=== PATIENT | male | born 1960 | race Caucasian/White ===

== ENCOUNTER 2018-08-03 13:46 | Inpatient (IN) | payer OTHER ==
[~2018-08-03] VITALS: Ht 193 cm; Wt 109.4 kg
[2018-08-03] MEDS ORDERED: ASPIRIN (EC) 81 MG TAB PO ONE (15:30)
[2018-08-03] MEDS ORDERED: SOD CHLORIDE 0.9% 100 ML ONE (15:43)
[2018-08-03] MEDS ORDERED: IOHEXOL 100 ML ONE (15:43)
[2018-08-03] MEDS ORDERED: GABA300C16 PO (16:04)
[2018-08-03] MEDS ORDERED: GABA-526 PO (16:04)
[2018-08-03] MEDS ORDERED: LEVE100018 PO (16:04)
[2018-08-03] MEDS ORDERED: METO-319 PO (16:05)
[2018-08-03] MEDS ORDERED: AMLO5TAB4 PO (16:05)
[2018-08-03] MEDS ORDERED: LTH150C PO (16:06)
[2018-08-03] MEDS ORDERED: ONDANSETRON 4 MG INJ IV PRN ×2 (16:30→17:00)
[2018-08-03] MEDS ORDERED: ACETAMINOPHEN 325 MG TAB PO PRN ×2 (16:30→17:00)
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
[2018-08-03] MEDS: traMADol 50 MG TAB PO PRN ×4 (17:11→23:35)
--- NOTE | 2018-08-03 18:25 | ERD ---
ER Documentation Chief Complaint Chief Complaint dizziness, right arm weakness more than usual, HPI 58-year-old male with a history of stroke and hypertension presenting with right upper extremity and right lower extremity weakness and numbness. He has a history of previous stroke with some numbness and tingling in his right side. However since 12 PM today, he is complaining of worsening symptoms with tingling in his face as well. No associated chest pain, shortness of breath, vision disturbance, speech difficulty ROS All systems reviewed and are negative except as per history of present illness. Medications Home Meds Reported Medications [place] Carbonate* ([place]*) 150 Mg Cap, 450 MG PO BID, CAP 08/03/18 Amlodipine Besylate* (Norvasc*) 5 Mg Tablet, 5 MG PO DAILY, TAB 08/03/18 Metoprolol Succinate* (Toprol XL*) 50 Mg Tab.er.24h, 50 MG PO DAILY, #30 TAB 08/03/18 Gabapentin* (Gabapentin*) 600 Mg Tablet, 600 MG PO BID, #60 TAB 08/03/18 Gabapentin* (Gabapentin*) 300 Mg Capsule, 300 MG PO BID, #60 CAP 08/03/18 Levetiracetam* (Keppra*) 1,000 Mg Tablet, 1000 MG PO BID, TAB 08/03/18 Allergies Allergies: Coded Allergies: amitriptyline (Verified Allergy, Unknown, 08/03/18) codeine (Verified Allergy, Unknown, 08/03/18) PMhx/Soc Medical and Surgical Hx: pt denies Surgical Hx History of Surgery: Yes (hemorrhagic stroke, back) Hx Neurological Disorder: Yes (sz; stroke hemorrhagic) Hx Cardiac Disorders: Yes (htn) Hx Psychiatric Problems: Yes (bipolar, stroke) Hx Miscellaneous Medical Probl: Yes (cervical stenosis) Hx Alcohol Use: Yes Hx Substance Use: No Hx Tobacco Use: Yes Smoking Status: Never smoker FmHx Family History: No diabetes Physical Exam Vitals Vital Signs Date Temp Pulse Resp B/P (MAP) Pulse Ox O2 O2 Flow FiO2 Time Delivery Rate 08/03/18 77 18 141/86 100 Room Air 16:16 (104) 08/03/18 Nasal 2 15:09 Cannula 08/03/18 98.3 78 18 135/78 100 14:12 (97) Physical Exam Const: No acute distress Head: Atraumatic Eyes: Normal Conjunctiva, PERRLA, EOMI, no nystagmus ENT: Normal External Ears, Nose and Mouth. Neck: Full range of motion. No meningismus. Resp: Clear to auscultation bilaterally Cardio: Regular rate and rhythm, no murmurs Abd: Soft, non tender, non distended. Normal bowel sounds Skin: No petechiae or rashes Back: No midline or flank tenderness Ext: No cyanosis, or edema Neur: Awake and alert, oriented x3, cranial nerves intact. Normal speech. Strength 4+ out of 5 in right upper extremity. Strength 4 out of 5 in right lower extremity. 5 out of 5 strength in left upper and lower extremities. Diminished sensations on the right side to painful stimuli. Left side sensation is normal. Psych: Normal Mood and Affect Result Diagram: 08/03/18 1504 08/03/18 1504 Results 24 hrs Laboratory Tests Test 08/03/18 15:03 08/03/18 15:04 08/03/18 15:31 08/03/18 17:17 Prothrombin Time 12.8 Sec Prothrombin Time 1.0 Ratio INR International 0.95 Normalized Ratio Activated 26.8 Sec Partial Thromboplas t Time White Blood Count 6.2 10^3/ul Red Blood Count 5.05 10^6/ul Hemoglobin 15.1 g/dl Hematocrit 45.6 % Mean Corpuscular 90.3 fl Volume Mean Corpuscular 29.9 pg Hemoglobin Mean Corpuscular 33.1 g/dl Hemoglobin Concent Red Cell 12.2 % Distribution Width Platelet Count 243 10^3/UL Mean Platelet 9.9 fl Volume Immature 0.300 % Granulocytes % Neutrophils % 67.9 % Lymphocytes % 19.2 % Monocytes % 7.9 % Eosinophils % 3.9 % Basophils % 0.8 % Nucleated Red Blood 0.0 /100WBC Cells % Immature 0.020 10^3/ul Granulocytes # Neutrophils # 4.2 10^3/ul Lymphocytes # 1.2 10^3/ul Monocytes # 0.5 10^3/ul Eosinophils # 0.2 10^3/ul Basophils # 0.1 10^3/ul Nucleated Red Blood 0.0 10^3/ul Cells # Sodium Level 142 mmol/L Potassium Level 4.2 mmol/L Chloride Level 106 mmol/L Carbon Dioxide 33 mmol/L Level Anion Gap 3 Blood Urea Nitrogen 14 mg/dl Creatinine 0.71 mg/dl Est Glomerular > 60 mL/min Filtrat Rate mL/min Glucose Level 114 mg/dl Hemoglobin A1c 5.3 % Calcium Level 9.3 mg/dl Creatine Kinase 88 IU/L Creatine Kinase 1.4 Index Creatinine Kinase 1.19 ng/ml MB (Mass) Troponin I < 0.012 ng/ml Triglycerides Level 301 mg/dl Cholesterol Level 136 mg/dl LDL Cholesterol, 25 mg/dl Calculated HDL Cholesterol 51 mg/dl Cholesterol/HDL 2.6 RATIO Ratio Ethyl Alcohol Level < 10.0 mg/dl Bedside Glucose 151 mg/dL Urine Color YELLOW Urine Clarity CLEAR Urine pH 7.0 Urine Specific 1.010 [place] Urine Ketones NEGATIVE mg/dL Urine Nitrite NEGATIVE mg/dL Urine Bilirubin NEGATIVE mg/dL Urine Urobilinogen NEGATIVE mg/dL Urine Leukocyte 1+ Dorothy/ul Esterase Urine Microscopic 1 /HPF RBC Urine Microscopic 1 /HPF WBC Urine Mucus FEW /HPF Urine Hemoglobin NEGATIVE mg/dL Urine Glucose NEGATIVE mg/dL Urine Total Protein NEGATIVE mg/dl Urine Opiates Negative Screen Urine Barbiturates Negative Urine Amphetamines Positive Screen Urine Negative Benzodiazepines Screen Urine Cocaine Negative Screen Urine Cannabinoids Negative Current Medications Medications Dose Sig/Lorrie Start Time Status Last (Trade) Ordered Route PRN Stop Time Admin Dose Reason Admin Aspirin 162 mg ONCE ONCE 08/03/18 DC 08/03/18 (Halfprin) PO 15:30 08/03/18 15:38 15:31 IV Flush 10 ml STK-MED 08/03/18 DC (NS 10 ml) ONCE .ROUTE 15:43 08/03/18 15:44 Sodium 100 ml @ STK-MED 08/03/18 DC Chloride ONCE .ROUTE 15:43 08/03/18 15:44 Iohexol 100 ml @ ud STK-MED 08/03/18 DC ONCE .ROUTE 15:43 08/03/18 15:44 Ondansetron 4 mg ER BRIDGE 08/03/18 DC HCl (Zofran PRN IV 16:30 08/03/18 Inj) NAUSEA/VOMITI 16:49 NG 650 mg ER BRIDGE 08/03/18 DC Acetaminophen PRN PO 16:30 08/03/18 (Tylenol .MILD PAIN 16:49 Tab) 1-3 OR TEMP Ondansetron 4 mg Q6H PRN 08/03/18 HCl (Zofran IV 17:00 Inj) NAUSEA/VOMITI NG 650 mg Q6H PRN 08/03/18 Acetaminophen PO .PAIN 1-3 17:00 (Tylenol OR TEMP Tab) Amlodipine 5 mg DAILY PO 08/04/18 Besylate 09:00 (Norvasc) Gabapentin 600 mg BID PO 08/03/18 (Neurontin) 21:00 1,000 mg BID PO 08/03/18 Levetiracetam 21:00 (Keppra) [place] 450 mg BID PO 08/03/18 Carbonate 21:00 ([place] Carbonate) Metoprolol 50 mg DAILY PO 08/04/18 Succinate 09:00 (Toprol Xl) Tramadol 50 mg Q6H PRN 08/03/18 08/03/18 HCl PO MODERATE 17:00 17:11 (Ultram) PAIN LEVEL 4-6 Procedures/MDM EMERGENT LABS AND DIAGNOSTIC STUDIES: Lab Results above were reviewed and interpreted by me. CBC: no anemia or evidence of infection CMP: No evidence of electrolyte abnormality, renal failure, hypoglycemia, liver failure, or biliary obstruction Lipase: no evidence of pancreatitis Troponin within normal limits, not indicative of cardiac ischemia Lactate within normal limitswithout evidence of sepsis or tissue hypoperfusion UA: no evidence of infection 12-lead EKG was interpreted by Mari Fam MD: Normal Sinus Rhythm Rightward axis Normal intervals Abnormal R wave progression No acute ST or T wave changes suggestive of acute ischemia or STEMI. Radiology Results as interpreted by Radiology below were reviewed by Jennifer Fam MD: Chest x-ray shows no acute abnormalities CT head shows no evidence of acute stroke or intracranial hemorrhage CTA brain and neck showed no evidence of large vessel occlusion Initial Nursing notes reviewed. Previous Medical Records requested via the Electronic Health Record. EMERGENCY DEPARTMENT COURSE / MEDICAL DECISION MAKING: When I examined the patient, he was complaining of increasing right-sided weakness and numbness from his baseline. Code stroke was activated at that time. He was evaluated by the tele-neurologist on-call, Dr. Mishra. He does not meet TPA criteria. He recommended MRI of the brain and the C-spine given his history of C-spine problems. Patient will be admitted for further stroke workup as per his recommendations. Accepting Care Team: Current data and ongoing care discussed. Time: Time of admission Primary Provider: Dr. Robin Consulting: Dr. Mishra Outstanding Data: MRI Brain and C spine Departure Diagnosis: Primary Impression: Numbness and tingling of right side of face Additional Impression: Right sided weakness Condition: JAISON Khan MD Aug 03, 2018 18:22
[2018-08-03] MEDS ORDERED: LORAZEPAM 2 MG INJ IV STA (18:46)
[2018-08-03] MEDS ORDERED: LORAZEPAM 2 MG INJ IV PRN (19:00)
[2018-08-03] MEDS: LEVETIRACETAM 500 MG TAB PO SCH (22:06)
[2018-08-03] MEDS: GABAPENTIN 300 MG CAP PO SCH (22:07)
[2018-08-03] MEDS: LITHIUM CARBONATE 150 MG CAP PO SCH (22:08)
[2018-08-03 22:55] VITALS: PULSE 68
[2018-08-03 23:00] VITALS: BP 144/71; PULSE 60; RESP 20
[2018-08-03 23:10] VITALS: Ht 193 cm; Wt 109.4 kg
[2018-08-04] VITALS (9 sets, daily range): BP systolic 119–136; BP diastolic 61–80; PULSE 55–82; RESP 16–20
[2018-08-04] MEDS: traMADol 50 MG TAB PO PRN ×2 (05:37→11:21)
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
[2018-08-04] MEDS: LEVETIRACETAM 500 MG TAB PO SCH (08:32)
[2018-08-04] MEDS: GABAPENTIN 300 MG CAP PO SCH (08:32)
[2018-08-04] MEDS: LITHIUM CARBONATE 150 MG CAP PO SCH ×2 (08:32→11:20)
[2018-08-04] MEDS ORDERED: METOPROLOL (XL) 50 MG TAB PO SCH (09:00)
[2018-08-04] MEDS ORDERED: AMLODIPINE 5 MG TAB PO SCH (09:00)
[2018-08-04] MEDS ORDERED: BACLOFEN 10 MG TAB PO SCH (13:00)
[2018-08-04] MEDS ORDERED: TRAM50TA2 PO (17:03)
--- NOTE | 2018-08-04 17:23 | PDOCDIS ---
Discharge Instructions DIAGNOSIS Discharge Diagnosis Nonspecific neurologic symptoms not associated with an anatomic lesion. CONDITION [id number] Patient Condition: [id number] Good HOME CARE INSTRUCTIONS: [id number] Diet Instructions: [id number] Regular ACTIVITY: [id number] Activity Restrictions: [id number] No Restrictions FOLLOW UP/APPOINTMENTS Follow-up Plan 1. Take all medications as prescribed. FRANKIE GARCIA MD Aug 04, 2018 17:23
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
== END 2018-08-04 18:31 | disposition home or self-care (01) | DRG 93 ==
LOC: E/R 13:46 → EDSEX 13:46 → TEL 16:02
PROVIDERS: ADMIT Internal Medicine; ATTEND Internal Medicine
DX: R29.818 Other symptoms and signs involving the nervous system (principal); M54.2 Cervicalgia; I10 Essential (primary) hypertension; G40.909 Epilepsy, unspecified, not intractable, without status epilepticus; R29.810 Facial weakness; F15.10 Other stimulant abuse, uncomplicated
CPT/HCPCS: 36415; 70450; 70496; 70498; 70551; 71045; 72141; 80048; 80053; 80061; 80307; 81001; 82550; 82553; 82962; 83036; 83735; 84100; 84443; 84484; 85025; 85610; 85730; 87081; 92610; 93005; 97162; J2060; Q9967